=== PATIENT | male | born 1950 | race Caucasian/White ===

== ENCOUNTER 2020-03-13 21:53 | Emergency (ER) | payer OTHER, MEDICARE ==
--- NOTE | 2020-03-13 22:04 | PDOC ---
History of Present Illness - General Chief Complaint: Pain, Acute Stated Complaint: Abdominal pain x 5 hours History Source: Patient Exam Limitations: No Limitations - History of Present Illness Initial Comments: 03/13/20 22:02 69 yo M reports "stomach issues" (pt unclear of exact details but reports h/o constipation for which he takes medication) and previous abdominal surgery where a mesh was placed p/w lower crampy constant abdominal pain x6 hours. Reports mild nausea but no vomiting. Last BM ~3 days ago and patient reports usually has a BM every 3-4 days. Reports has not passed as much flatus since onset of pain. Denies any suspicious food intake or sick contacts. Denies fevers. Unable to joaquin ntify any modifying factors and did not take any medication a jarad for pain prior to arrival. However patient does state pain has improved slightly since onset without any intervention. Denies cough, chest pain, SOB, recent travel, headache or dizziness/lightheadedness. Is tolerating PO. Denies urinary complaints. Past History - Medical History Allergies/Adverse Reactions: Allergies Allergy/AdvReac Type Severity Reaction Status Date / Time No Known Allergies Allergy Verified 03/13/20 22:00 Home Medications: Ambulatory Orders Atorvastatin Ca [Lipitor -] 10 mg PO HS 12/16/14 Hydrocodone Bit/Acetaminophen [Vicodin Es 7.5-300mg -] 1 tab PO Q8H PRN 12/16/14 Nortriptyline HCl 75 mg PO DAILY 12/16/14 Tamsulosin HCl [Flomax] 0.4 mg PO DAILY #7 capsule 03/14/20 HTN: Yes Hypercholesterolemia: Yes - Psycho-Social/Smoking History Smoking History: Never smoked Review of Systems - Review of Systems Able to Perform ROS?: Yes Comments:: 03/13/20 22:07 GENERAL/CONSTITUTIONAL: No fever or chills. No weakness. HEAD, EYES, EARS, NOSE AND THROAT: No change in vision. No ear pain or discharge . No sore throat. CARDIOVASCULAR: No chest pain or shortness of breath. RESPIRATORY: No cough, wheezing, or hemoptysis. GASTROINTESTINAL: No nausea, vomiting, diarrhea. GENITOURINARY: No dysuria, frequency, or change in urination. MUSCULOSKELETAL: No joint or muscle swelling or pain. No neck or back pain. SKIN: No rash. NEUROLOGIC: No headache, vertigo, loss of consciousness, or change in strength/sensation. ENDOCRINE: No increased thirst. No abnormal weight change. HEMATOLOGIC/LYMPHATIC: No anemia, easy bleeding, or history of blood clots. ALLERGIC/IMMUNOLOGIC: No hives or skin allergy. *Physical Exam - Physical Exam 03/13/20 22:07 GENERAL: Well appearing, in no acute distress HEAD: NCAT EYES: EOMI, sclera anicteric, conjunctiva clear ENT: Auricles normal inspection, nares patent, MMM NECK: Normal ROM, supple LUNGS: CTAB. Good air entry. No wheezes, No Rhonchi and no crackles HEART: RRR, + s1 s2, no murmurs, rubs or gallops ABDOMEN: Soft, nontender, normoactive bowel sounds. No guarding, no rebound. No masses, negative mcburney's, negative xavier's EXTREMITIES: Warm and well perfused. No LE edema. FROM. No clubbing or cyanosis. No cords, erythema, or tenderness NEUROLOGICAL: Aox3, Speech fluent, face symmetric, tongue/uvula midline. Sensation grossly intact to light touch. Ambulatory with steady gait. Strength intact. No focal deficits. SKIN: Warm, dry, normal turgor, no rashes or lesions noted. ED Treatment Course - LABORATORY CBC & Chemistry Diagram: 03/13/20 22:31 03/13/20 22:04 Medical Decision Making - Medical Decision Making 03/13/20 22:08 69 yo M with lower abd cramping, unremarkable physical exam, possible constipation vs. obstruction vs. mild colitis vs. enteritis vs. diverticulitis vs. very low suspicion for pancreatitis. Abd pain lower and crampy, doubt atypical presentation of ACS and hx and exam more consistent with GI, (also low suspicion as no urinary complaints), or infectious etiology. Plan: -labs -urine -likely CT a/p -tylenol for pain -reassess This clinical encounter is taking place during a federal and state health care emergency attributable to the novel [place] Virus pandemic. The [employer] of the Department of Health and Human Services has declared, pursuant to the Public Health Service Act 319F-3 (42 U.S.C. 247d-6d), that a covered persons activities related to medical countermeasures against COVID-19 will be immune from liability under Federal and State law. 03/14/20 01:21 Labs and imaging reviewed. 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 UA results not concerning for infection so doubt infected stone. Possible pain 2/2 constipation vs. kidney stone. Patient reported earlier mild pain returning and nausea so given zofran and motrin. Currently well appearing and tolerating PO. Will d/c with return precautions, recommend pain control at home with NSAID, PO hydration and rx for flomax. Patient referred to for follow up. Discharge - Discharge Information Problems reviewed: Yes Clinical Impression/Diagnosis: Kidney stone Abdominal pain Qualifiers: Abdominal location: unspecified location Qualified Code(s): R10.9 - Unspecified abdominal pain Condition: Improved Disposition: HOME - Admission No - Additional Discharge Information Prescriptions: Tamsulosin HCl [Flomax] 0.4 mg PO DAILY #7 capsule - Follow up/Referral Referrals: Nick Evans MD [Non Staff, Medical] - - Patient Discharge Instructions Patient Printed Discharge Instructions: DI for Constipation, DI for Kidney Stones Additional Instructions: You can take tylenol or motrin at home as needed for pain. A prescription for flomax was sent to your pharmacy. You are being referred to Urology for follow up. Return to the ED for new or worsening symptoms. Print Language: SINHALA - Post Discharge Activity
[2020-03-13] MEDS ORDERED: ACETAMINOPHEN 325 MG TABLET (FP) PO ONE (22:05)
[2020-03-13 22:08] VITALS: BMI 18.6
[2020-03-13] MEDS ORDERED: ACETAMINOPHEN 325 MG TABLET (FP) ONE (22:32)
[2020-03-13 22:35] LABS: BASO % 4.2 % (0-2.0); HEMATOCRIT 40.6 % (35.4-49); HEMOGLOBIN 13.8 GM/dl (11.7-16.9); LYMPH % 3.6 % (8-40); MCH 30.1 pg (25.7-33.7); MCHC 33.9 g/dl (32.0-35.9); MEAN CELL VOLUME 88.7 fl (80-96); MEAN PLT VOLUME 9.4 fl (7.5-11.1); MONO % 3.3 % (3.8-10.2); NEUT % 88.9 % (42.8-82.8); PLATELET COUNT 200 K/MM3 (134-434); RBC 4.57 M/mm3 (4.00-5.60); RDW 13.2 % (11.9-15.9); WHITE BLOOD COUNT 13.5 K/mm3 (4.0-10.8)
[2020-03-13 22:52] LABS: ALBUMIN 4.6 g/dl (3.4-5.0); BILIRUBIN,TOTAL 0.8 mg/dl (0.2-1); CALCIUM 9.2 mg/dl (8.5-10); CREATININE 1.6 mg/dl (0.55-1.3); POTASSIUM 4.7 mmol/L (3.5-5.1); TOT PROT 7.6 g/dl (6.4-8.2)
[2020-03-13 22:56] LABS: EPITHELIAL CELLS FEW /hpf
[2020-03-13] MEDS ORDERED: SODIUM CHLORIDE 1,000 ML IV STA (23:34)
[2020-03-14 00:19] VITALS: BP 151/87; PULSE 65; TEMP 97.5
[2020-03-14] MEDS ORDERED: IBUPROFEN 400 MG TABLET (FP) PO ONE ×2 (01:15→01:19)
[2020-03-14] MEDS ORDERED: ONDANSETRON 4 MG/2 ML VIAL ONE (01:20)
[2020-03-14] MEDS ORDERED: ONDANSETRON 4 MG/2 ML VIAL IVPUSH ONE (01:20)
== END 2020-03-14 01:31 | disposition home or self-care (01) ==
LOC: FER 21:53
PROC: 3E0337Z Introduction of Electrolytic and Water Balance Substance into Peripheral Vein, Percutaneous Approach (ICD-10-PCS; principal; 2020-03-13)
PROC: 3E033GC Introduction of Other Therapeutic Substance into Peripheral Vein, Percutaneous Approach (ICD-10-PCS; 2020-03-14)
DX: N20.0 Calculus of kidney (principal)
CPT/HCPCS: 36415; 74177-TC; 80053; 81003; 81015; 83690; 85025; 87086; 96360; 96374; 99285-25; Q9967; U0003

== ENCOUNTER 2021-12-09 16:08 | Emergency (ER) | payer OTHER, MEDICARE ==
[2021-12-09 16:14] VITALS: TEMP 97.8; BMI 22.2
[2021-12-09] MEDS ORDERED: SODIUM CHLORIDE 0.9% 500 ML INFUS.BAG IV ONE (16:43)
[2021-12-09] MEDS ORDERED: ACETAMINOPHEN 1000 MG/100 ML BAG IVPB ONE (16:43)
[2021-12-09] MEDS ORDERED: METOCLOPRAMIDE HCL INJECTION 10 MG/2 ML VIAL IVPB ONE (16:43)
[2021-12-09] MEDS ORDERED: MECLIZINE HCL 25 MG TABLET (FP) PO ONE (16:57)
[2021-12-09] MEDS ORDERED: ACETAMINOPHEN INJECTION 100 ML IVPB ONE (17:04)
[2021-12-09] MEDS ORDERED: METOCLOPRAMIDE HCL INJECTION 10 MG/2 ML VIAL ONE (17:04)
[2021-12-09] MEDS ORDERED: MECLIZINE HCL 25 MG TABLET (FP) ONE (17:05)
[2021-12-09 17:22] LABS: ALBUMIN 4.3 g/dl (3.4-5.0); BILIRUBIN,TOTAL 0.7 mg/dl (0.2-1); CALCIUM 9.4 mg/dl (8.5-10); CREATININE 1.1 mg/dl (0.55-1.3); TOT PROT 7.2 g/dl (6.4-8.2)
[2021-12-09 19:17] LABS: BASO % 0.8 % (0-2.0); EOS % 0.8 % (0-4.5); HEMATOCRIT 40.8 % (35.4-49); HEMOGLOBIN 13.7 GM/dL (11.7-16.9); LYMPH % 13.4 % (8-40); MCH 30.4 pg (25.7-33.7); MCHC 33.5 g/dl (32.0-35.9); MEAN CELL VOLUME 90.7 fl (80-96); MEAN PLT VOLUME 10.1 fl (7.5-11.1); MONO % 5.3 % (3.8-10.2); NEUT % 79.7 % (42.8-82.8); PLATELET COUNT 214 10^3/uL (134-434); RDW 13.8 % (11.9-15.9); WHITE BLOOD COUNT 7.8 K/mm3 (4.0-10.0)
[2021-12-09 21:18] VITALS: PULSE 52
[2021-12-09 21:22] VITALS: BP 138/86
== END 2021-12-09 21:26 | disposition home or self-care (01) ==
LOC: FER 16:08
PROC: 3E0333Z Introduction of Anti-inflammatory into Peripheral Vein, Percutaneous Approach (ICD-10-PCS; principal; 2021-12-09)
PROC: 3E033GC Introduction of Other Therapeutic Substance into Peripheral Vein, Percutaneous Approach (ICD-10-PCS; 2021-12-09)
DX: R42 Dizziness and giddiness (principal)
CPT/HCPCS: 36415; 70450-TC; 71045-TC-FY; 80053; 81003; 84484; 85025; 87086; 87804; 93005; 99285-25; C9803-CS; U0003; U0005

== ENCOUNTER 2024-11-18 07:46 | Emergency (ER) | payer OTHER, MEDICARE ==
[2024-11-18 07:54] VITALS: BP 140/86; PULSE 58; RESP 18; TEMP 97.7; BMI 22.8
[2024-11-18] MEDS ORDERED: OXYMETAZOLINE 0.05% NASAL SOLUTION 15 ML BOTTLE NS ONE (08:00)
[2024-11-18] MEDS ORDERED: SILVER NITRATE 75% APPLIC STCK 1 PKT EACH ONE (08:00)
[2024-11-18] MEDS: OXYMETAZOLINE 0.05% NASAL SOLUTION 15 ML BOTTLE NS ONE (08:10)
== END 2024-11-18 09:40 | disposition home or self-care (01) ==
LOC: FER 07:46
PROC: 093K7ZZ Control Bleeding in Nasal Mucosa and Soft Tissue, Via Natural or Artificial Opening (ICD-10-PCS; principal; 2024-11-18)
DX: R04.0 Epistaxis (principal)
CPT/HCPCS: 99291